=== PATIENT | male | born 1970 | race Two or more races ===

== ENCOUNTER 2024-07-25 11:02 | Day surgery (SDC) | payer OTHER, SELFPAY ==
[2024-07-25 11:19] VITALS: BMI 35.4
[2024-07-25 11:42] VITALS: BP 144/90; PULSE 70; RESP 16; TEMP 37.2; O2SAT 96
[2024-07-25] MEDS: SODIUM CHLORIDE 0.9 % (FLUSH) 10 ML SYRINGE IVF (11:53)
[2024-07-25] MEDS: 0.9 % SODIUM CHLORIDE 500 ML 500 ML 100 ML IV (11:53)
--- NOTE | 2024-07-25 12:31 | SUR.PREOP ---
TIME?OUT:? PT/RN/MDA/sports director?VERIFICATION?OF?SURGICAL?SITE,?PROCEDURE,?AND?CONSENT OBTAINED?PRIOR?TO?INVASIVE?PROCEDURE.
[2024-07-25 12:32] VITALS: BP 121/81; PULSE 73; RESP 16; O2SAT 95
[2024-07-25] MEDS: fentaNYL 100 MCG/2 ML inj IVP (12:32)
[2024-07-25] MEDS: MIDAZOLAM HCL 1 MG/ML inj IVP (12:32)
--- NOTE | 2024-07-25 12:32 | SUR.PREOP ---
TIME?OUT:?1200 PT/RN/MDA/drum sander?VERIFICATION?OF?SURGICAL?SITE,?PROCEDURE,?AND?CONSENT OBTAINED?PRIOR?TO?INVASIVE?PROCEDURE.
--- NOTE | 2024-07-25 12:46 | SUR.PREOP ---
TIME?OUT:?1230 PT/RN/MDA/ipad lumber marker?VERIFICATION?OF?SURGICAL?SITE,?PROCEDURE,?AND?CONSENT OBTAINED?PRIOR?TO?INVASIVE?PROCEDURE.
[2024-07-25] MEDS: CEFAZOLIN 2 GM INJ IVP ×2 (12:58→13:05)
--- NOTE | 2024-07-25 13:19 | SUR.OPER ---
PATIENT QUESTIONS ANSWERED SATISFACTORILY PREOPERATIVELY.? PATIENT BROUGHT TO OR #1 PER CART.? Patient positioned supine on OR #1 bed.? The perioperative?team supported arms bilaterally on arm boards.? Final approval of positioning by surgeon.
--- NOTE | 2024-07-25 14:22 | W.ANESCHARGE ---
Anesthesia Charges Start Date/Time Anesthesia Start Date: 07/25/24 Anesthesia Start Time: 12:53 Stop Date/Time Anesthesia Stop Date: 07/25/24 Anesthesia Stop Time: 14:43
--- NOTE | 2024-07-25 14:22 | W.PM.NB ---
Nerve Block Nerve Block Time Seen by Provider: 12:34 Date Seen: 07/25/24 Type of block requested by surgeon for post-operative analgesia: popliteal Side: left Time out performed: Yes Verification of patient name: Yes Verification of date of : Yes Site marking: site marked Name of person performing procedure: Eddie Continuous monitoring Was continuous monitoring of O2 sat, B/P, panel monitor, recorded every 15 minutes?: Yes Procedure Checklist: sterile prep, needles and gloves Ultrasound guided. Images saved: Yes Medications given in 5ml increments after negative aspiration: Marcaine %: 0.5 mL: 20 Needle gauge: 22 Patient tolerated procedure well: Yes Additional comments: Needle noted adjacent to nerve Block Charges Block Charge (with Pro Fee): Sciatic Nerve Use of Ultrasound Machine for Block: Yes- US Guidance/pain block
[2024-07-25 14:40] VITALS: BP 132/89; PULSE 80; RESP 20; TEMP 36.7; O2SAT 96
[2024-07-25 14:45] VITALS: BP 133/96; PULSE 80; RESP 18; O2SAT 97
--- NOTE | 2024-07-25 14:51 | W.ANESCHARGE ---
Anesthesia Charges Start Date/Time Anesthesia Start Date: 07/25/24 Anesthesia Start Time: 12:53 Stop Date/Time Anesthesia Stop Date: 07/25/24 Anesthesia Stop Time: 14:38
[2024-07-25 15:00] VITALS: BP 122/93; PULSE 82; RESP 18; O2SAT 94
[2024-07-25 15:15] VITALS: BP 105/89; PULSE 83; RESP 18; O2SAT 93
--- NOTE | 2024-07-27 07:17 | W.PODPROC_ITS ---
Date of Procedure: 07/27/24 Surgeon: Scotty Cordoba DPM Pre-op Diagnosis: 1. Ganglion cyst left ankle 2. Tarsal tunnel syndrome left Post-op Diagnosis: 1. Ganglion cyst left ankle 2. Tarsal tunnel syndrome left Type of Procedure: 1. Excision of ganglion cyst left ankle 2. Tarsal tunnel the release with decompression left Indications: Patient has had a ganglion cyst to left ankle causing the pain and numbness in the foot. He has had this drained under ultrasound with recurrence. He would like to have it surgically removed. I reviewed the procedure, recovery, expectation potential complications. These include but are not limited to: Poor wound healing, infection, recurrence, nerve injury, arterial injury, potential need for future surgery, deep venous thrombosis, pulmonary embolism possible . He understands risks and written consent obtained. Site marked. Procedure Description: Patient had a preoperative popliteal block by Anesthesia. He was then brought to the operating room and placed in supine position on operating table and p laced under MAC anesthesia. He was then prepped and draped in sterile fashion. Standard time-out protocol followed. Left limb was then exsanguinated the tourniquet inflated. Linear incision was made directly over the cystic mass and the tarsal tunnel left. Incision was carried down through skin subcutaneous tissues. The deep fascia and retinaculum over the mass was then incised along its entire length. The cyst was then easily identified and its borders were identified. Unfortunately on the inferior posterior border the neurovascular structures coursed directly through lobes of the cyst. The anterior lobe of the cyst was the largest and I made a direct incision and drained this portion. We then were able to remove majority of the anterior portion of the cyst. I could not remove the posterior portion of the cyst as it was wrapped completely around the neurovascular structures. At this point the tourniquet was released so we could better visualize and follow the arterial branches. A small arterial bleed from a peripheral branch was noted when we attempted to remove the deeper portion of the cyst this was cauterized. No further bleeding noted. At this point I elected not to continue to try to remove any additional portion of the cyst to the posterior. We removed the entire anterior portion of the cyst which will hopefully prevent recurrence. Wound was thoroughly irrigated normal sterile saline. A tarsal tunnel decompression was he needed further inferiorly releasing the deep fascia and retinaculum are fully. Subcutaneous tissues reapproximated with 4-0 Monocryl and skin closed with 4-0 Prolene. Sterile dressing was applied and he was placed into a Cam boot. He was transferred from OR to same-day with vital signs stable and vascular status intact to the left foot. He will be discharged per same-day surgery protocol. He is given both written and verbal postop instructions. He is given oxycodone for pain. Will follow up in clinic in 2 days. He is weight-bearing as tolerated with crutches assistance. Anesthesia: MAC and regional Hemostasis: ankle (high) Estimated blood loss (mL): 30 Specimens: specimen obtained, sent to pathology Disposition: same day
== END 2024-07-25 15:48 | disposition home or self-care (01) ==
PROVIDERS: PCP Family Medicine; Visit Provider Podiatrist
PROC: (CPT 27630; principal; 2024-07-25 12:15)
DX: M67.472 Ganglion, left ankle and foot (principal); G57.52 Tarsal tunnel syndrome, left lower limb; G89.18 Other acute postprocedural pain; Z76.89 Persons encountering health services in other specified circumstances
CPT/HCPCS: 27630; 28035; 01470; 64445; 76942; 88304; 97116; 97162; T1013; J0690; J2250; J2704; J3010; J7030

== ENCOUNTER 2025-07-22 18:51 | Emergency (ER) | payer OTHER, SELFPAY ==
--- OUTSIDE RECORDS SUMMARY | 2025-07-22 18:53 | XMS_ITS | Clinical Summary ---
Author Organization [facility] Address [address] [place] [id number] Care Team Providers Care Planetarium Technician Name Role Phone Pcp, No Primary Care Provider Unavailabl e Allergies No known active allergies Medications omeprazole (PRILOSEC) 40 mg Delayed-Release capsule Take 1 Capsule by mouth once daily. Active ketoconazole 2 % creamIndication s:Tinea pedis of left foot Apply topically to affected area(s) once daily. 60 g 4 Active oxyCODONE (ROXICODONE) 5 mg immediate release tabletIndicatio ns:Ganglion, left ankle and foot Take 1-2 Tablets (5-10 mg) by mouth every 4 hours if needed for Pain. 20 Tablet 4 Active Additional Information Patient not taking.Reported on 05/08/2025 Active Problems Problem Noted Date Diagnosed Date Primary osteoarthritis of right knee 05/08/2025 Encounters Date Type Department Care Team Description 07/05/2025 Nurse Triage [facility] [address] [place] [address] Pcp, No Knee Pain/problem (/) 05/08/2025 12:40 PM CDT Office Visit [facility] [address] [place] [address] Kaylen Taylor MD Knee Pain/problem (right knee pain started two weeks pain has gotten worse 10/10 pain has tried ice and tylenol and hasn't worked ) 05/08/2025 Travel from Last 3 Months Immunizations Immunization Administration Dates Next Due COVID-19 vaccine (Pfizer-Bio NTech 30mcg/0.3mL) 12YO+ BIVALENT PF, MDV 06/05/2022 COVID-19 vaccine (Pfizer-BioNTech 30mcg/0.3mL) P F, MDV 12/20/2020,11/29/2020 Influenza, IIV4 06/05/2022 Tdap 11/21/2010 Family History Medical History Relation Name Comments Diabetes Father Diabetes Mother Heart Disease Mother Diabetes Sister Laura Wagner Relation Name Status Comments Father Alive Mother Alive Sister Laura Wagner Social History Tobacco Use Types Packs/Day Years Used Date Smoking Tobacco: Never Smokeless Tobacco: Never Tobacco Cessation:Counseling Given: Yes Alcohol Use Standard Drinks/Week Comments No 0 (1 standard drink = 0.6 oz pur e alcohol) PHQ-2 Answer Date Recorded PHQ-2 TOTAL SCORE 2 06/05/2022 Social Connections Answer Date Recorded Do you often feel lonely or isolated from those around you? 0 07/05/2024 Alcohol Use Answer Date Recorded How often do you have a drink containing alcohol ? 0 05/08/2025 Average Number of Drinks Not on file 025 How often do you have five or more drinks on one occasion? 0 05/08/2025 Financial Resource Strain Answer Date R ecorded Difficulty of Paying Living Expenses 3 07/05/2024 Difficulty of Paying Living Expenses Not on file 07/05/2024 Food Insecurity Answer Date Recorded Do you worry your food will run out before you are able to buy more? 1 07/05/2024 Transportation Needs Answer Date Record ed Does lack of transportation keep you from medica l appointments? 1 07/05/2024 Does lack of transportation keep you from work, meetings or getting things that you need? 1 07/05/2024 Housing Stability Answer Date Recorded What is your housing situation today? 1 07/05/2024 Utilities Answer Date Recorded Do you have trouble paying f or utilities (for example, heat, electricity, water, phone)? 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 on file Not on file Not on file Obstetrics History Last Filed Vital Signs Vital Sign Reading Time Taken Comments Blood Pressure 130/80 05/08/2025 12:48 PM CDT opal billings Pulse 85 05/08/2025 12:48 PM CDT Temperature 36.4 C (97.5 F) 07/20/2024 2:07 PM NARROW GAUGE ENGINEER Respiratory Rate 16 07/20/2024 2:07 PM NARROW GAUGE ENGINEER Oxygen Saturation 91% 05/08/2025 12:48 PM CDT Inhaled Oxygen Concentration - - Weight 93.7 kg (206 lb 9.6 oz) 07/20/2024 2:07 P M NARROW GAUGE ENGINEER Height 163 cm (5' 4.17) 07/20/2024 2:07 PM NARROW GAUGE ENGINEER Body Mass Index 35.27 07/20/2024 2:07 PM NARROW GAUGE ENGINEER Plan of Treatment Health Maintenance Due Date Last Done Comments HIV for age 15-65 1985 Hepatitis C screening for ag e 18-79 1988 Hepatitis B series for 19+ ( 1 of 3 - 19+ 3-dose series) 1989 Colonoscopy through age 75 2015 Pneumococcal series for age 50+ (1 of 1 - PCV) 2020 RSV vaccine for adults or (1 - Risk 50-74 years 1-dose series) 2020 Zoster (shingles) series for age 50+ (1 of 2) 2020 Tetanus booster 11/21/2020 11/21/2010 Depression screening for age 12+ 06/09/2023 06/09/2022, 06/05/2022, 11/24/2018 COVID-19 vaccine series ( season) 2025 06/05/2022, 12/20/2020, 11/29/2020 Influenza Vaccine (#1) 2025 06/05/2022 BMI (ht and wt on same day) for age 18+ 07/20/2025 07/20/2024, 03/16/2024, 07/03/2022, Additional history exists Lipids for age 45-75 06/05/2027 06/05/2022 Procedures Procedure Name Priority Date/Time Associated Diagnosis Comments LIPID PANEL W REFLEX MEASURED LDL Routine 06/05/2022 2:57 PM CDT Routine general medical examination at a health care facility from Last 3 Months or Most Recently Relevant to Health Maintenance Results * (ABNORMAL) LIPID PANEL W REFLEX MEASURED LDL (06/05/2022 2:57 PM CDT) CHOLESTEROL,TOTAL 204(H) 100 - 199 mg/dL 06/07/2022 1:32 AM CDT [facility] TRIGLYCERIDES 263(H) <150 mg/dL 06/07/2022 1:32 AM CDT [facility] HDL CHOLESTEROL 39(L) >40 mg/dL 1:32 AM CDT [facility] NON-HDL CHOLESTEROL 165(H) <145 mg/dl 06/07/2022 1:32 AM CDT [facility] CHOL/HDL RATIO 5.23(H) <4.50 06/07/2022 1:32 AM CDT [facility] LDL CHOLESTEROL 112 <=130 mg/dL 06/07/2022 1:32 AM CDT [facility] VLDL CHOLESTEROL 53(H) <=30 mg/dL 06/07/2022 1:32 AM CDT [facility] PROVIDER ORDERED STATUS RANDOM 06/07/2022 1:32 AM CDT [facility] Blood BLOOD SPECIMEN / Unknown Venipuncture / Unknown 06/05/2022 2:57 PM CDT 06/05/2022 3:00 PM CDT us Jose Ma MD CHEMISTRY Final Re sult [facility] [address] [place] [address], [place] from Last 3 Months or Most Recently Relevant to Health Maintenance Insurance [facility] [employer] [facility] Care Teams Planetarium Technician Relationship Specialty Start Date End Date PcpBeverly PCP - General 02/24/24
--- OUTSIDE RECORDS SUMMARY | 2025-07-22 18:53 | XMS_ITS | Data Portability ---
Author Organization [facility] Address [address] [place] [address] [place] [address] Assessment No assessment recorded. Plan of Treatment Reminders Order Date Submit Date Provider Last Modified By Organization Details Last Modified Time Details Appointments None recorded. Lab CBC w/ auto diff 2023 SHELDON Not available 16:18:15 Referral None recorded. Procedures None recorded. Surgeries None recorded. Imaging None recorded. Medication Orders omeprazole 40 mg capsule,del ayed release 2023 [facility], [address] [place] [address], [id number], 14:38:59 omeprazole 40 mg capsule,del ayed release 2023 024 [facility], [address] [place], [address], 15:25:45 Patient TargetsNo targets recorded. Patient Instructions Encounter Date Encounter Id Patient Instructions Last Modified By Organization Details Last Modified Time 12/07/2023 [id number] Start omeprazole 40 mg once a day for 4 weeks. No Aleve, naproxen or ibuprofen, Tylenol for pain. Follow up in 1 month if problems have not resolved. Not available 12/07/2023 15:33:11 01/11/2024 [id number] gastroesophageal reflux disease (GERD): care instructions [email or web address] Not available 01/19/2024 14:38:55 Take the omepraz ole 40mg once a day for 30 days any time the pain causes trouble. Check BP once a month and if above 140/90 then return to start medication. Not available 01/11/2024 16:31:33 Reason for Referral None Reported. Results Created Date Observation Date Name Description Value Unit Range Abnormal Flag Note LastModifiedBy Organization Detail LastModifiedTime 12/15/1912/15/2023 CBC w/ auto diff HGB 17.0 normal Not Available [facility] [address] [place], [address], 12/16/2023 16:08:22 12/15/19 24 12/15/2023 CBC w/ auto diff WBC 7.92 Not Available [facility] [address] [place], [address], 12/16/2023 16:08:22 12/15/1912/15/2023 CBC w/ auto diff plt 247 Not Available [facility] [address] [place], [address], 12/16/2023 16:08:22 Result Notes None recorded. Medical Equipment None Reported. Medications Name Sig Start Date Stop Date Status Note LastModified by Organization Details LastModified Time naproxen 250 mg tablet take 1 tablet by oral route 2 times every day with food x 10 days 12/06 completed Not Available Not Available Not Available omeprazole 40 mg capsule,anusha yed release TAKE 1 CAPSULE BY MOUTH ONCE DAILY. active Not Available Not Available No t Available Vitals Date Recorded Body weight Body mass index (BMI) Body height Respiratory rate Body temperature Oxygen saturation Heart rate Systolic And Diastolic Provider Name and Address Organization Details Last Updated DateTime 4 14745.9 9 g 33.7 kg/m2 160.02 cm 22 /min 97.4 [degF] 99 % 73 /min 125/80 mm[Hg] Dilcia Whitney [place] - [facility] 4 14:14:27 Date Recorded Body height Body mass index (BMI) Body weight Respiratory rate Oxygen saturation Body temperature Heart rate Systolic And Diastolic Provider Name and Address Organization Details Last Updated DateTime 4 160.02 cm 35 kg/m2 31256.8 5 g 22 /min 99 % 98.1 [degF] 68 /min 143/85 mm[Hg] Dilcia Whitney [facility] [email or web address] 16:21:23 Social History None recorded. Functional Status None recorded. Mental Status None recorded. Family History Nothing Reported. Medical History No medical history recorded. Past Encounters Encounter ID Performer Location Encounter Start Date Encounter Closed Date Diagnosis/Indication Diagnosis SNOMED-CT Code Diagnosis ICD10 Code Diagnosis IMO Codes Diagnosis Note [id number] ZACKARY SAGASTUME MD [facility] [address] [place] [address] [facility] [place] [address] 12/07/2023 13:57:23 12/07/2023 15:41:31 History of melena 320672481 Z87.19 Gastroesop hageal reflux disease 218171679 K21.9 [id number] ZACKARY SAGASTUME MD [facility] [address] [place] [address] [place] [address] 01/11/2024 16:08:13 01/11/2024 17:48:10 Gastroesophageal reflux disease 433704809 K21.9 Epigastric pain 10625010 R10.13 Health Concerns Section Related Observation LastModified by Organization Detai ls LastModified Time None Recorded Concern Status LastModified by Organization Details LastModified Time None Recorded Advance Directives Directive None Recorded Payers Insurance Date Sequence Insurance Name Policy Number Policy Dangelo Covered Member ID Dangelo Member ID Guarantor Name 12/07/2023 SLIDING FEE SCHEDULE - DISCOUNT Gumaro Azul Notes Date Note Type Note Provider Name and Address Organization Details Recorded Time 12/07/2023 text/html Patient here for follow-up of persistent upper abdominal pain. Patient is not having any fever or nausea and vomiting. Patient has not had any significant lightheadedness but may have had some dark stools. Patient has not tried any specific interventions thus far. ZACKARY SAAGSTUME MD [address] [place] [address], [phone], [facility] [employer] [facility] 12/11/2023 01:02:38 01/11/2024 text/html Reflux/GERDRepor elder by Patient Patient here for follow-up of treatment for his epigastric and abdominal pain. Patient did quite well with the omeprazole previous treatment with symptoms resolved following medication and months and stopping had return of symptoms. Patient has had no nausea or vomiting. No other concerns today. TYLER MATSON MD [address] [place], [place] [address], [place], [address], [facility] 01/19/2024 14:39:07
[2025-07-22 19:03] VITALS: BP 161/81; PULSE 91; RESP 18; TEMP 36.7; O2SAT 96; BMI 37.8
--- NOTE | 2025-07-22 19:33 | XR_ITS ---
Patient: PAKO CARRASCO Facility:?[facility] Patient ID:?[id number] Site Patient ID:?[id number]. Site :?1970 Study:?XRay-Knee Right -07/22/2025 8:07:01 PM Ordering Physician:Chato Rasmussen Final Report: INDICATION: Fall with lateral knee pain TECHNIQUE: X-ray knee right three views COMPARISON: None. FINDINGS: There is no acute fracture or dislocation of the right knee. There are tricompartmental degenerative changes, which are most severe in the lateral tibiofemoral compartment. There is prepatellar soft tissue swelling, as well as a small knee joint effusion. IMPRESSION: 1. No acute fracture or dislocation of the right knee. Prepatellar soft tissue swelling with a small knee joint effusion. 2. Degenerative changes, as described. Dictated by Philipp Melendrez MD @ 07/22/2025 8:09:58 PM (Electronic Signature)
--- NOTE | 2025-07-22 19:33 | XR_ITS ---
Patient: PAKO CARRASCO Facility:?[facility] Patient ID:?[id number] Site Patient ID:?[id number]. Site :?1970 Study:?XRay-Shoulder Left -07/22/2025 8:04:13 PM Ordering Physician:Chato Rasmussen Final Report: INDICATION: Fall, posterior shoulder pain TECHNIQUE: X-ray shoulder left three views COMPARISON: None. FINDINGS: There is no acute fracture or dislocation of the left shoulder. The joint spaces are maintained. Overlying soft tissues are within normal limits. IMPRESSION: No acute fracture or dislocation of the left shoulder. Dictated by Philipp Melendrez MD @ 07/22/2025 8:11:58 PM (Electronic Signature)
--- NOTE | 2025-07-22 19:45 | ED.FALL ---
HPI - Fall General Date Seen: 07/22/25 Chief Complaint: Fall/Minor Trauma Stated Complaint: Right Knee injury Time Seen by Provider: 07/22/25 19:27 Source: patient Mode of arrival: wheelchair Limitations: no limitations History of Present Illness HPI Narrative: Patient is a 55-year-old male presenting for right knee pain and left shoulder pain. He states he was caring something down some steps when he missed a step and fell 3 steps. He states he landed on his right leg and twisted his knee and then hit the back of his left shoulder. Denies hitting his head. He has been unable to pressure in his right knee since then. States he has full range of motion of his left shoulder just has some mild pain in the posterior aspect. States pain is also lateral aspect of the knee. Is unable to fully extend or flex it. Denies injuring his knee in the past. Does states he has arthritis in this knee and gets injections for it. Related Data Home Medications ?Medication ?Instructions ?Recorded ?Confirmed No Known Home Medications 07/22/25 07/22/25 Allergies Allergy/AdvReac Type Severity Reaction Status Date / Time No Known Drug Allergies Allergy Verified 07/22/25 19:07 Review of Systems Narrative: Pertinent systems reviewed and were negative unless stated in HPI PFSH PFSH Social History Smoking Status: Never smoker Do you use any of these nicotine containing products: None How often do you have a drink containing alcohol: never How often do you have six or more drinks on one occasion: Never AUDIT-C Alcohol total score: 0 Non-prescribed substance use: denies use Caffeine: Yes Exam Narrative: Exam Narrative: Const: Well-nourished, Well-developed, in mild distress Eyes: PERRL, no conjunctival injection, and symmetrical lids HENT: Atraumatic external nose and ears. Moist mucous membranes. MSK: Decreased range of motion to the right knee. States he feels like his knee is locking up when I try to extend and flex it for both passive and active range of motion. Tenderness noted to the midline knee worse on the lateral aspect. Mild pain noted to left coracoid process of the shoulder. Full range of motion of his shoulder. No other injuries noted Skin: Warm, Dry. No rashes or lesions. Neuro: Normal Muscle tone, No focal neurological deficits. Psych: Awake, Alert, & Oriented x3. Appropriate mood and affect. Const: Vital Signs, click to edit/add: Vital Signs - 24 hr 07/22/25 19:03 Temperature 98.1 F Pulse Rate [Pulse Oximeter] 91 Respiratory Rate 18 Blood Pressure [Ri ght Upper Arm] 161/81 H Pulse Oximetry 96 Oxygen Delivery Me thod Room Air Course Vital Signs Vital signs: Initial Vital Signs Temperature 98.1 F 07/22/25 19:03 Temperature Source Temporal Artery Scan 07/22/25 19:03 Pulse Rate 91 07/22/25 19:03 Respiratory Rate 18 07/22/25 19:03 Blood Pressure 161/81 H 07/22/25 19:03 Blood Pressure Mean 107 H 07/22/25 19:03 Blood Pressure Position Sitting 07/22/25 19:03 Pulse Oximetry 96 07/22/25 19:03 Oxygen Delivery Method Room Air 07/22/25 19:03 Vital Signs Temperature 98.1 F 07/22/25 19:03 Pulse Rate 91 07/22/25 19:03 Respiratory Rate 18 07/22/25 19:03 Blood Pressure 161/81 H 07/22/25 19:03 Pulse Oximetry 96 07/22/25 19:03 Oxygen Delivery Method Room Air 07/22/25 19:03 Temperature 98.1 F 07/22/25 19:03 Pulse Rate 91 07/22/25 19:03 Respiratory Rate 18 07/22/25 19:03 Blood Pressure 161/81 H 07/22/25 19:03 Pulse Oximetry 96 07/22/25 19:03 Oxygen Delivery Method Room Air 07/22/25 19:03 Medications Administered Medications: Generic Name Dose Route Start Last Admin Trade Name Aniyah PRN Reason Stop Dose Admin Oxycodone HCl 5 mg 07/22/25 19:41 07/22/25 19:59 Oxycodone 5 Mg Tablet PO 07/22/25 19:42 5 mg ONCE ONE Administration MDM - Fall MDM Narrative Medical decision making narrative: Patient is a 55-year-old male presents for left shoulder and right knee pain. He states left shoulder pain is relatively mild he is mostly concerned about the knee pain. He is unable to ambulate on the knee due to the pain. Is not taking anything at for pain. Will give him oxycodone. I am concern for meniscus tear but will do an x-ray of to make sure there is no fractures. Will also x-ray the left shoulder. X-rays interpreted by myself and the radiologist showed no acute fractures. There is a small effusion in the right knee. He needs to follow up with Orthopedics now for his likely meniscus injury. Will prescribe him oxycodone via [facility]. Patient states he has crutches at home Diagnosis: Right knee pain Imaging Data X-ray right knee: Attestation: I have reviewed the pertinent imaging results. Radiologist's impression: 1. No acute fracture or dislocation of the right knee. Prepatellar soft tissue swelling with a small knee joint effusion. 2. Degenerative changes, as described. Dictated by Philipp Melendrez MD @ 07/22/2025 8:09:58 PM X-ray left shoulder: Attestation: I have reviewed the pertinent imaging results. Radiologist's impression: No acute fracture or dislocation of the left shoulder. Dictated by Philipp Melendrez MD @ 07/22/2025 8:11:58 PM Discharge Plan Discharge Clinical Impression: Acute pain of right knee Patient Disposition: Home, Self-Care Condition: Stable Instructions: Meniscus Tear (ED) Additional Instructions: Take Tylenol and ibuprofen for pain. If that is not helping use the oxycodone provided. Follow-up with [facility]. Call them at . Use crutches and weight bear as tolerated to that right knee. Prescriptions: No Action No Known Home Medications Follow Up/Referrals: Jose Ma MD [Primary Care Provider, Family Practice] Stand Alone Forms: [employer] Info Instructions
== END 2025-07-22 20:37 | disposition home or self-care (01) ==
LOC: ED 20:22
PROVIDERS: Emergency Provider Student in an Organized Health Care Education/Training Program; PCP Family Medicine
DX: M25.561 Pain in right knee (principal); M25.512 Pain in left shoulder; W10.9XXA Fall (on) (from) unspecified stairs and steps, initial encounter
CPT/HCPCS: 73030; 73562; 99283; 99284; A9270